=== PATIENT | female | born 1955 | race Two or more races ===

== ENCOUNTER 2016-12-14 12:04 | Outpatient (RCR) | payer MEDICARE | END 2016-12-16 | disposition home or self-care (01) | LOC: WCC 12:04 | DX: L97.929 Non-pressure chronic ulcer of unspecified part of left lower leg with unspecified severity (principal); Z90.89 Acquired absence of other organs; Z90.11 Acquired absence of right breast and nipple | CPT/HCPCS: 11042 ==

== ENCOUNTER 2016-12-21 11:50 | Outpatient (RCR) | payer MEDICARE | END 2017-01-16 | disposition home or self-care (01) | LOC: WCC 11:50 | DX: L97.829 Non-pressure chronic ulcer of other part of left lower leg with unspecified severity (principal); Z90.11 Acquired absence of right breast and nipple; Z90.89 Acquired absence of other organs | CPT/HCPCS: 11042; 29580; G0463 ==